=== PATIENT | female | born 1990 | race Caucasian/White ===

== ENCOUNTER → 2018-07-22 15:10 | Outpatient (CLI) | payer MEDICAID, SELFPAY ==
[2018-07-22 18:37] LABS: Chlamydia Trachomatis by PCR Negative (Negative); Neisserai gonorrhoeae by PCR Negative (Negative); Probe Check PASS; Sample Adequacy Control PASS; Specimen Processing Control PASS
[2018-07-28 10:48] LABS: HPV Reflexed? NOT INDICATED
== END ==
PROVIDERS: Visit Provider Obstetrics & Gynecology
DX: Z11.3 Encounter for screening for infections with a predominantly sexual mode of transmission (principal); Z12.4 Encounter for screening for malignant neoplasm of cervix
CPT/HCPCS: 87491; 87591; 88175; G0145

== ENCOUNTER → 2018-08-05 14:31 | Outpatient (CLI) | payer MEDICAID, SELFPAY ==
[2018-08-05 17:58] LABS: Thyroid Stim Hormone (TSH) 0.57 uIU/mL (0.358-3.74)
[2018-08-05 17:59] LABS: Absolute Lymphocyte Count 2.34 X10^3/ul (0.83-4.51); Absolute Neutrophil Count 10.4 X10^3/uL (2.0-7.7); Basophil# 0.02 X10^3/uL; Basophil% 0.1 % (0-1); Eosinophil# 0.13 X10^3/uL; Eosinophils% 0.9 % (0-5); Hematocrit 34.8 % (37-47); Lymphocyte # 2.34 X10^3/ul (4.0); Lymphocyte % 17.1 % (19-41); Mean Corp Hgb Conc 34.5 g/gl (32-36); Mean Corpuscular Hgb 31.5 pg (27.0-32.0); Mean Corpuscular Volume 91.3 fL (81-99); Mean Platelet Vol. 8.9 fl (6.2-12.0); Monocyte% 5.8 % (0-10); Neutrophil # 10.38 X10^3/uL (2.7-7.7); Neutrophil % 75.8 % (47-70); Platelet Count 390 K/mm3 (150-450); RBC Distribution Width CV 11.9 % (11.6-14.6); RBC Distribution Width SD 39.4 fl (35.1-43.9); Red Blood Count 3.81 M/mm3 (4.2-5.4); White Blood Count 13.7 K/mm3 (4.4-11.0)
[2018-08-05 18:06] LABS: POSITIVE COUNT NO; POSITIVE DIFFERENTIAL NO; POSITIVE MORPHOLOGY NO
[2018-08-05 18:09] LABS: COTININE Drug Screen Positive (<200 ng/mL)
[2018-08-05 18:11] LABS: Amphetamine Urine VISTA NEGATIVE (<1000 ng/mL); Barbiturate Urine VISTA NEGATIVE (< 200 ng/mL); Benzodiazepine Urine VISTA NEGATIVE (< 200 ng/mL); Cocaine Urine VISTA NEGATIVE (< 300 ng/mL); Ecstacy Urine VISTA NEGATIVE (< 500 ng/mL); Methadone Urine VISTA NEGATIVE (< 300 ng/mL); PCP Urine VISTA NEGATIVE (< 25 ng/mL); THC Urine VISTA NEGATIVE (< 50 ng/mL); Vista UDS pH Range 6
[2018-08-05 18:17] LABS: Color, Urine Yellow (Yellow); Glucose, Dipstick Normal (Normal); Ketone-Dipstick Negative (Negative); Leukocyte Esterase-Dipstick 100 /ul (Negative); Nitrite-Dipstick Negative (Negative); Occult Blood-Urine Negative /ul (Negative); Protein-Dipstick Negative (Negative); Urine Bilirubin Dipstick Negative (Negative); Urine Clarity Clear (Clear); Urine Urobilinogen 4 mg/dl (Normal)
[2018-08-05 18:38] LABS: HIV - WCH Non-Reactive (Nonreactive)
[2018-08-07 11:32] LABS: HEPATITIS B SURFACE AG Negative (Negative); Hep C Antibodies 0.1 s/co ratio (0.0-0.9)
[2018-08-09 01:30] LABS: Prenatal RPR NONREACTIVE (NONREACTIVE)
== END ==
PROVIDERS: Visit Provider Obstetrics & Gynecology
DX: Z34.81 Encounter for supervision of other normal pregnancy, first trimester (principal)
CPT/HCPCS: 36415; 80307; 81002; 84443; 85025; 86703; 86762; 86803; 87340

== ENCOUNTER → 2018-11-15 | Outpatient (CLI) | payer MEDICAID, SELFPAY ==
[2014-03-09 15:23] VITALS: BMI 22.6
[2018-11-15 17:12] LABS: Absolute Lymphocyte Count 3.32 X10^3/ul (0.83-4.51); Absolute Neutrophil Count 15.5 X10^3/uL (2.0-7.7); Basophil# 0.02 X10^3/uL; Basophil% 0.1 % (0-1); Hematocrit 31.3 % (37-47); Hemoglobin 10.6 g/dl (12.0-15.0); Lymphocyte # 3.32 X10^3/ul (4.0); Lymphocyte % 16.2 % (19-41); Mean Corp Hgb Conc 33.9 g/gl (32-36); Mean Corpuscular Volume 94.6 fL (81-99); Mean Platelet Vol. 9.4 fl (6.2-12.0); Monocyte# 1.31 X10^3/uL; Monocyte% 6.4 % (0-10); Neutrophil # 15.53 X10^3/uL (2.7-7.7); Neutrophil % 75.5 % (47-70); POSITIVE COUNT NO; POSITIVE DIFFERENTIAL NO; POSITIVE MORPHOLOGY NO; Platelet Count 292 K/mm3 (150-450); RBC Distribution Width CV 12.3 % (11.6-14.6); RBC Distribution Width SD 40.6 fl (35.1-43.9); Red Blood Count 3.31 M/mm3 (4.2-5.4); White Blood Count 20.6 K/mm3 (4.4-11.0)
[2018-11-15 17:14] LABS: Glucose Challenge Gest 1H 50g 101 mg/dL (70-140)
== END | disposition home or self-care (01) ==
PROVIDERS: Visit Provider Obstetrics & Gynecology
DX: Z34.83 Encounter for supervision of other normal pregnancy, third trimester (principal)
CPT/HCPCS: 36415; 82950; 85025

== ENCOUNTER 2019-01-16 12:00 | Outpatient (CLI) | payer MEDICAID, SELFPAY ==
[2014-03-09 15:23] VITALS: BMI 22.6
[2019-01-16 12:15] VITALS: BMI 24.3
[2019-01-16 13:54] LABS: Bacteria 0 SEEN /hpf (None Seen); Mucous, Urine 0 SEEN /hpf (<or=2+); Red Blood Cells-Urine 0 SEEN /hpf (0-5); Squamous Epithelial Cells - UA 0 SEEN /hpf (5-10)
[2019-01-16 13:56] LABS: Color, Urine Yellow (Yellow); Glucose, Dipstick Normal (Normal); Ketone-Dipstick Negative (Negative); Leukocyte Esterase-Dipstick 500 /ul (Negative); Nitrite-Dipstick Negative (Negative); Occult Blood-Urine Negative /ul (Negative); Protein-Dipstick Negative (Negative); Urine Bilirubin Dipstick Negative (Negative); Urine Clarity Clear (Clear); Urine Urobilinogen Normal (Normal)
[2019-01-16 14:06] LABS: White Blood Cells 0-5 SEEN /hpf (0-5)
--- NOTE | 2019-01-16 16:40 | OB.TRI.NOTE ---
History of Present Illness Date of Service: 01/16/19 Was patient seen by the physician?: No Reason For Visit: LABOR AND DELIVERY Date of Service: 01/16/19 Final CARLYN: 02/07/19 Final CARLYN Source: US <20 weeks Gestational age: 36 Weeks and 6 Days History of Present Illness: 28 yo female at 36 6/7 wk EGA presents with CC of discomfort , cramping and pelvic pressure Hoping to be induced or have baby soon. Hx of two prior 38 wk deliveries. no UTI sx Allergies latex Allergy (Unknown, Verified 01/16/19 12:17) Rash if internal if latex used externally, no reaction noted Laboratory Studies: Laboratory Tests 01/16/19 Range/Units 13:40 Urine Color Yellow (Yellow) Urine Clarity Clear (Clear) Urine pH 8.0 (5.0 - 8.0) Ur Specific [place] 1.010 (1.002-1.030) Urine Protein Negative (Negative) mg/dl Urine Glucose (UA) Normal (Normal) mg/dl Urine Ketones Negative (Negative) mg/dl Urine Occult Blood Negative (Negative) /ul Urine Nitrite Negative (Negative) Urine Bilirubin Negative (Negative) mg/dL Urine Urobilinogen Normal (Normal) mg/dl Ur Leukocyte Esterase 500 H (Negative) /ul Urine RBC 0 SEEN (0-5) /hpf Urine WBC 0-5 SEEN (0-5) /hpf Ur Squamous Epith Cells 0 SEEN (5-10) /hpf Urine Bacteria 0 SEEN (None Seen) /hpf Urine Mucus 0 SEEN (<or=2+) /hpf NST - FHR Rate Baby A Baseline: 120-130s avg variability. Accels to 160s Variability:: Moderate Accelerations:: None Decelerations:: None NST Reactive:: Yes, Appropriate for gestational age FHR Category:: Category I Uterine Activity:: irritability. no regular UCs noted. Impression/Plan 36 6/7 wk EGA . NST reactive, no regular UCs. UA: LE noted, nit neg and no bacteria noted. False labor, musculoskeletal discomforts of late Home RTO as planned for next PNV Return to [facility] if inc s/sx of labor.
== END 2019-01-16 14:20 | disposition home or self-care (01) ==
LOC: WPOUT 12:13 → WP 12:14
PROVIDERS: Family Provider Obstetrics & Gynecology; PCP Obstetrics & Gynecology; Referring Provider Obstetrics & Gynecology; Visit Provider Obstetrics & Gynecology
DX: O47.03 False labor before 37 completed weeks of gestation, third trimester (principal); Z3A.36 36 weeks gestation of pregnancy
CPT/HCPCS: 59025; 59050; 81001; 99218; G0378

== ENCOUNTER → 2019-01-17 16:57 | Outpatient (CLI) | payer MEDICAID, SELFPAY ==
[2019-01-16 12:15] VITALS: BMI 24.3
== END ==
PROVIDERS: Visit Provider Obstetrics & Gynecology
DX: Z36.85 Encounter for antenatal screening for Streptococcus B (principal)
CPT/HCPCS: 87081

== ENCOUNTER 2019-01-31 07:05 | Inpatient (IN) | payer MEDICAID, SELFPAY ==
[2019-01-31 07:31] VITALS: BMI 24.8
[2019-01-31] MEDS: Lactated Ringers 1,000 ML 50 ML IV (07:33)
[2019-01-31 08:01] LABS: Absolute Lymphocyte Count 3.44 X10^3/uL (0.83-4.51); Absolute Neutrophil Count 12.4 X10^3/uL (2.0-7.7); Basophil# 0.05 X10^3/uL; Basophil% 0.3 % (0-1); Eosinophil# 0.23 X10^3/uL; Eosinophils% 1.3 % (0-5); Hematocrit 30.9 % (37-47); Hemoglobin 10.2 g/dL (12.0-15.0); Lymphocyte # 3.44 X10^3/ul (4.0); Lymphocyte % 19.6 % (19-41); Mean Corpuscular Hgb 30.8 pg (27.0-32.0); Mean Corpuscular Volume 93.4 fL (81-99); Mean Platelet Vol. 9.8 fl (6.2-12.0); Monocyte# 1.18 X10^3/uL; Monocyte% 6.7 % (0-10); NRBC Flagged by Analyzer 0 % (0-5); Neutrophil # 12.39 X10^3/uL (2.7-7.7); Neutrophil % 70.7 % (47-70); Platelet Count 306 K/mm3 (150-450); RBC Distribution Width CV 12.6 % (11.6-14.6); RBC Distribution Width SD 43.5 fl (35.1-43.9); Red Blood Count 3.31 M/mm3 (4.2-5.4); White Blood Count 17.5 K/mm3 (4.4-11.0)
[2019-01-31] MEDS: Oxytocin 30 units/NS 500 ml 30 UNITS/500 ML IV.SOLN IV ×2 (08:02→16:16)
--- NOTE | 2019-01-31 08:09 | PCM.HPOB.BLA ---
History and Physical Date of Admission: 01/31/19 OB HISTORY AND PHYSICAL EXAMINATION History of this : 28 yo female Ab0 with EDC 02/07/2019 by 13 weeks 3 days Ultrasound, presents to Labor and Delivery for elective induction of labor at 39 wk EGA. 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 6# 8 oz (head got stuck?), vacuum extraction 5.) Smoker Pertinent Past Medical History: As above. Allergies: Latex Medications: During - 27-0.8 mg tablet; ferrous sulfate 325 mg (65 mg iron) tablet ; loratadine 10 mg capsule Review of Systems: Non-contributory PHYSICAL EXAMINATION General Appearance: edentulous 28 yo female in no acute distress Vital Signs: AF, VSS Lungs: reg respiratory rate and rhythm. Breasts: deferred Abdomen: gravid Pelvis: adequate Cervix: 3/75/-2 AROM clear, mod amount of fluid. Presentation: cephalic Size: AGA Movement: present Heart: present 130-140s avg variability. Accels noted no UCs on monitor at this time. Impression /Plan: Intrauterine . female at 39 wk EGA for elective induction of labor AROM and Pitocin planned. Watch progress, descent and tolerance of labor. AROM clear fluid with cervical mucous noted. Watch for meconium. (nursing called this meconium -- they have notified peds) Advised pt if mec present, then peds and RT also at delivery. Continue Pitocin induction. H and P generated at time of exam and admission Gustavo Gary MD 01/31/19 [id number]
[2019-01-31] MEDS: Lactated Ringers 500 ML 999 ML IV ×2 (09:22→11:37)
[2019-01-31] MEDS: fentaNYL-bupivacaine (epidural) 100 ML BAG EPIDURAL ×2 (10:37→15:15)
--- NOTE | 2019-01-31 12:33 | PCM.PN.BLA ---
Progress Note LABOR PROGRESS NOTE comfortable w/ epidural AVSS Pitocin at 2 mIU/min EFM 120-130s avg variability. Accels. Category I tracing UCs ? mVUs on IUPC. Irregular and appear inadequate mVUs CX: 4-5/80/-2 per last RN check. Light mec reported A/P; 39 wk EGA elective induction of labor. continue Pitocin per protocol, position changes to facilitate rotation, descent. Pitocin prn, consider flush or replace IUPC
--- NOTE | 2019-01-31 14:00 | NURSING ---
Latex free Hugo catheter.
[2019-01-31] MEDS: Lactated Ringers 1,000 ML 200 ML IV (14:39)
--- NOTE | 2019-01-31 16:47 | DCINST_ITS ---
Discharge Diet: No Restrictions Discharge Activity: May Shower, May Take a Tub Bath May resume sexual activity in: 4-6 weeks Additional Activity Instructions:: Nothing in the vagina for 4-6 weeks. You may return to work/school in 6 weeks. Additional Instructions: If you experience any of the following, contact your healthcare provider. * Bleeding that soaks a pad every hour for 2 hours * Fever 100.4 or higher * Unrelieved abdominal pain * Problems urinating (including inability to urinate or burning while urinating). * Visual changes * Severe headache * Flu-like symptoms * Pain or redness in one of both of your breasts * Pain, warmth, tenderness or swelling in your legs, especially the calf area * Frequent nausea and vomiting * Symptoms of depression or anxiety If you experience any of the following, call 911 or go to the nearest Emergency Room. * Chest pain * Problems breathing * Seizure activity * Partial or complete paralysis of a body part, slurred speech, weakness or drooping of the face, or a sudden inability to walk or hold your balance Allergies/Adverse Reactions: Allergies latex Allergy (Unknown, Verified 01/16/19 12:17) Rash if internal if latex used externally, no reaction noted Medications to take at Discharge Vits [Prenatabs FA ] 1 tablet PO DAILY 03/09/14 Loratadine/Pseudoephedrine [Claritin-D 24 Hour Tablet] 1 ea PO DAILY 01/16/19 Ferrous Sulfate 325 mg PO DAILY 01/31/19 Hydroxyzine Pamoate [Vistaril] 50 mg PO PRN PRN 01/31/19 Please Follow Up With: Inez Gary MD - [phone] When: Call to make an appointment with your doctor in 6 weeks. Primary Care Physician: Nadya Chaves NP-C [Primary Care Provider] - Test Results: Test results from this visit will be discussed in further detail at your follow- up appointment, if applicable. Proposed Discharge Date: 02/02/19
--- NOTE | 2019-01-31 17:14 | OP.PCM_ITS ---
Vaginal Delivery Maternal Presentation: Elective Induction Method of Induction: Pitocin Medical Reason for Induction: Maternal Medical Condition: list: - 39 weeks completed gestation, iron deficiency anemia, maternal smoking Amniotic Membrane Rupture Type: Artificial Amniotic Fluid Description: Lightly stained meconium Final CARLYN: 02/07/19 Final CARLYN Source: US <20 weeks Gestational age: 39 Weeks and 0 Days Date of Procedure: 01/31/19 Pre-Operative Diagnosis: IUP @ 39 completed weeks gestation Post-Operative Diagnosis: Spontaneous Vaginal Delivery Type of Anesthesia: Epidural Description of Procedure: Upon my arrival patient was c/c/+1 with caput forming; vertex felt to be in ROP position; patient placed in exaggterated LL Scott position, pushed effectively, and delivered a male , OA to JACQUELIN; shoulders delivered smoothly with McRobert's position; dried, stimulated, placed on mother's abdomen with pediatrics in attendance, cord clamped x 2 and cut, after which was taken to the nearby warmer; APGARs were 8/9 and he was soon returned to mother's arms; placenta delivered spontaneously, Bernard mechanism, intact, 3- vessel cord, central insertion; perineum intact; fundus firm, midline, u/3 after delivery. EBL 300 Presentation: Vertex Placental Delivery Description: Spontaneous Placenta Disposition: [facility] Cord Vessel Description: 3 Vessels Infant A gender: Male (1 minute): 8 (5 minute): 9 Episiotomy Description: None Laceration: None Medications given after delivery: IV Pitocin
[2019-01-31 20:15] VITALS: BP 110/61; PULSE 77; RESP 16; TEMP 37.5; O2SAT 98
[2019-02-01 00:30] VITALS: BP 98/59; PULSE 63; RESP 16; TEMP 36.4
[2019-02-01] MEDS: Ibuprofen 600 MG Tablet PO ×3 (00:34→13:03)
[2019-02-01 04:30] VITALS: BP 96/49; PULSE 66; RESP 16; TEMP 36.2
[2019-02-01 06:35] LABS: Hematocrit 27.1 % (37-47); Hemoglobin 8.9 g/dL (12.0-15.0); Mean Corp Hgb Conc 32.8 g/dL (32-36); Mean Corpuscular Hgb 30.7 pg (27.0-32.0); Mean Corpuscular Volume 93.4 fL (81-99); Mean Platelet Vol. 9.6 fl (6.2-12.0); Platelet Count 247 K/mm3 (150-450); RBC Distribution Width CV 12.4 % (11.6-14.6); RBC Distribution Width SD 42.7 fl (35.1-43.9); White Blood Count 24.6 K/mm3 (4.4-11.0)
--- NOTE | 2019-02-01 07:04 | PN.OBGYN_ITS ---
Subjective: Feeling well, :a little crampy, well controlled with Ibuprofen, Tylenol; passing flatus,tolerating diet well bottle feeding; doing well Objective: Fundus firm, midline, u/3, lochia small; breasts soft - Physical Exam General: Alert, Oriented x3, Cooperative, No apparent distress HEENT: PERRLA, EOMI Oral: Moist Mucosa Neck: Supple Lungs: Normal air movement Cardiovascular: Regular rate, Regular Rhythm Abdomen: Soft, Non Tender Extremities: Capillary Refill Less than 3 Seconds, No Calf Tenderness Skin: No rashes Neurological: Cranial nerves II-XII grossly intact, Deep Tendon Reflexes 2+/4 and Symmetrical Psych/Mental Status: Normal Affect, Appropriate, Alert and oriented to time, place, person, mood and affect Vital Signs Temp Pulse Resp BP Pulse Ox 97.1 F L 66 16 96/49 L 98 02/01/19 04:30 02/01/19 04:30 02/01/19 04:30 02/01/19 04:30 01/31/19 20:15 Oxygen Delivery Method Room Air Weight: 144 lb 9.972 oz Body Mass Index (BMI) 24.8 Intake and Output for Last 24 Hours 01/30/19 01/31/19 02/01/19 23:59 23:59 23:59 Intake Total 2142.84 / 2142.84 Output Total 1500 / 1500 Balance 642.84 / 642.84 Laboratory Tests Past 24 Hrs 01/31/19 01/31/19 02/01/19 07:53 07:53 06:20 WBC 17.5 H 24.6 H RBC 3.31 L 2.90 L Hgb 10.2 L 8.9 L Hct 30.9 L 27.1 L MCV 93.4 93.4 MCH 30.8 30.7 MCHC 33.0 32.8 RDW Std Deviation 43.5 42.7 RDW Coeff of Paul 12.6 12.4 Plt Count 306 247 MPV 9.8 9.6 Immature Gran % (Auto) 1.400 H Neut % (Auto) 70.7 H Lymph % (Auto) 19.6 [place] % (Auto) 6.7 Eos % (Auto) 1.3 Baso % (Auto) 0.3 Absolute Neuts (auto) 12.4 H Absolute Lymphs (auto) 3.44 Nucleated RBC % 0 Blood Type A POSITIVE Antibody Screen NEGATIVE Medical Necessity - Tobacco Use Smoking Status: Heavy Smoker (>10/day) Assessment/Plan Assessment: day #1 Normal involution and course Bottle feeding Plan: Discussed comfort measures to avoid engorgement Continue routine care
[2019-02-01 08:15] VITALS: BP 105/55; PULSE 81; RESP 16; TEMP 36.7; O2SAT 100
[2019-02-01] MEDS: Acetaminophen 500 MG Tablet 1000 MG PO (09:57)
[2019-02-01 12:00] VITALS: BP 117/68; PULSE 79; RESP 17; TEMP 36.7; O2SAT 98
[2019-02-01 16:00] VITALS: BP 115/60; RESP 17; O2SAT 99
--- NOTE | 2019-02-01 17:20 | CASEMGMT ---
Social Work Referral Date: 02/01/19 Date of Assessment: 02/01/19 Reason for Consult: History of depression for Mother of baby (MOB). Informant: Dr. Gary, nursing staff. Personal Status Mentation: A&Ox3 Present during assessment: MOB and . Hx : 3 Hx Para: 2 Infant Gender: Male Infant Name: Blaze Garnica (1min): 8 (5min): 9 Care: Adequate Alleged father: Paco Garnica Alleged father involved: Yes Length of Relationship with alleged father of baby: 7 Years FOB Mental Health/AOD/Domestic Violence Hx: MOB reporting that father of baby (FOB) has some depression. Denies any mental health treatment or SI for FOB and that it has been awhile since KARMEN has had a spell. MOB stating that FOB has used THC in the past but nothing current. FOB does smoke tobacco. No other substance usage per MOB. FOB Employment: Full-time Number of Children in the home: This will be third child for MOB and second for FOB. Custody Comments: MOB and FOB have had this infant and Cynthia age 4 together. Ingrid is age 8 and does not share paternity with this or Cynthia. MOB stating to have custody of all children and that Ingrid's father is not involved that MOB is not sure who the father is. Living Arrangements: MOB, FOB, Cynthia, Ingrid and now this infant live together in a private home. Education: Some collage. Employment: Exterminator Helper Family Dynamics/Relationships: MOB reporting positive dynamics and relationships. MOB denies any history of abuse or neglect. Supports: MOB stating to have support from FOB and sister in law. KARMEN currently has other children. Transportation: No concerns identified. Substance Abuse Hx and Current Pattern of Use MOB stating to have used THC some a couple years ago. MOB denies any active THC usage. MOB denies to using THC during . No tox obtained for MOB on admission. MOB stating to smoke tobacco daily and to be aware of smoking away from children and and risk of SIDS for infant. MOB stating that FOB and MOB smokes outside and not around the children. MOB reporting to have an occasional drink of alcohol, but identifies no abuse. MOB denies any other substance usage such as Methamphetamine, Cocaine, Prescriptions Drugs, or Heroin. Mental Health Hx and Current Status MOB stating to have a history of depression with Cynthia. MOB stating to have been down. MOB denies any SI or HI. MOB denies any medication or counseling to manage mental health. MOB denies any mental health diagnosis at this time. MOB educated on further signs and symptoms on depression. MOB agreeing to speak with MOB's doctor if MOB begins showing signs and symptoms of depression. MOB stating to have been able to get through on own with past . Items/Skills List for Infants Care Supplies: MOB stating to have all needed supplies crib, car seat, infant clothing, diapers etc. Bonding With Infant: MOB stating to have a connection with . MOB planning to bottle feed and that that this is going well. Observed Maternal/Paternal Child interaction: MOB holding infant during interaction. MOB gazing towards and finger tipping often during assessment. Emotional Assessment: MOB presenting with a positive affect. Control: MOB planning to have a tubal completed. Resources: MOB reporting to be active with WIC and to have insurance through [employer]. Patient stating to have a history of [facility] but declining referral at this time. Patient denies any children services involvement in the past. Patient provided with resource on safe sleeping, [employer] [facility] [employer], depression, and community resources. Intervention: None indicated at this time Plan: Infant to discharge to home with MOB and FOB and other children. Bozena GILES, LEENA
[2019-02-01 19:46] VITALS: BP 124/69; PULSE 68; RESP 18; TEMP 36.2
--- NOTE | 2019-02-01 20:21 | NURSING ---
1999-[facility]
== END 2019-02-01 20:00 | disposition home or self-care (01) | DRG 560 ==
PROVIDERS: Admitting Provider Obstetrics & Gynecology; Family Provider Nurse Practitioner Family; PCP Nurse Practitioner Family; Referring Provider Obstetrics & Gynecology; Visit Provider Obstetrics & Gynecology
DX: O77.0 Labor and delivery complicated by meconium in amniotic fluid (principal); O99.334 Smoking (tobacco) complicating childbirth; O99.02 Anemia complicating childbirth; Z3A.39 39 weeks gestation of pregnancy; Z37.0 Single live birth
CPT/HCPCS: 59025; 59050; 85025; 85027; 86850; 86900; 86901; 99218; J7120; G0378

== ENCOUNTER 2019-04-16 06:09 | Day surgery (SDC) | payer MEDICAID, SELFPAY ==
--- NOTE | 2019-04-15 08:59 | HP.PCM_ITS ---
History and Physical Date of Admission: 04/15/19 HISTORY OF PRESENT ILLNESS: On 03/13/2019, Maricel Garnica, a 28 year old female 3 0 0 0 3, presented for: -- Preop appointment. Maricel is S/P 01-31-19, plans to have bilateral tubal ligation / Surgical sterilization for control. After discussion of methods for surgical sterilization, plans to have bilateral salpingectomy for potential reduction of risk of ovarian cancer. EB ALLERGIES: Latex, Rash/hives MEDICATIONS HISTORY: Current medications prescribed by our practice are: 1. azithromycin 250 mg tablet, 2 tab po first day, then one po daily until gone 2. Dramamine 50 mg tablet, 1 po q 4 to 6 hr taken 1/2 to 1 hr prior to travel 3. ferrous sulfate 325 mg (65 mg iron) tablet, 1 po daily 4. Formula 28 mg iron-800 mcg tablet, 1 daily 5. terconazole 0.8 % vaginal cream, 1 applicator daily for 7 d 6. Vistaril 50 mg capsule, 1 to two po at hs prn sleep REVIEW OF SYSTEMS: GENERAL - Denies fever, or chills SKIN - Denies skin changes EYES - Denies visual changes EARS - Denies difficulty hearing NOSE - Denies nasal congestion or bleeding MOUTH - Denies sore throat or difficulty swallowing NECK - Denies pain or swelling RESPIRATORY - Denies shortness of breath or wheezing CARDIOVASCULAR - Denies palpitations or chest pain GASTROINTESTINAL - Denies nausea, vomiting, diarrhea, constipation GENITOURINARY - Denies dysuria, frequency of urination, incontinence of urine MUSCULOSKELETAL - Denies joint or muscle pain NEUROLOGICAL - Denies localized numbness or weakness PSYCHIATRIC - Denies depression or anxiety ENDOCRINE - Denies heat or cold intolerance, weight loss or gain HEMATO-IMMUNOLOGIC - Denies excessive bleeding with cuts SURGICAL HISTORY: 1. none MENSTRUAL HISTORY: LMP Known?- Approximate-Month KnownAmount/Duration - 3-5 DAYS, Regularity - Regular, Frequency - monthly days, LMP - 03/12/19, Age Onset Menarche - 12 PAST PREGNANCIES: Total Pregnancies - 3; Full Term Pregnancies - 3; Premature - 0; Abortions, Induced - 0; Abortions, Spontaneous - 0; Ectopics - 0; Multiple Births - 0; Living Children - 3 SOCIAL HISTORY: Alcohol Use - drinks occasionally not while Smoking - Advised to quit and Smoker x 10 y. 1PPD+ if having bad day. Diet - caffeine > 2 drinks per day, fast food diet, needs improvement and One Monster drink qday. 1-2 Mt Dew. Water 16 oz x2 qday. Lifestyle - moderate stress lifestyle and Exercise - minimal Seat Belt Use - always Employer - homemaker Illicit Drug Use - Tried marijuana but didn't like it. None since. Sexual Activity - Residence - They live w his grandmother. In [facility] (made a room for the girls). Place of - [place] Hours Worked - 20 or less Spouse-Sig Other Name - Paco Spouse-Sig Other Occupation - Katie Spouse-Sig Other Phone No - [phone] Children Name(s) - Ingrid 2013 ()Janet 2010, Blaze ('19) Control - Trying to decide PHYSICAL EXAMINATION BP- 100/80 Sitting, Right arm, regular cuff Weight- 129.20 lbs Height- 64.00 inch BMI:22.22 CONSTITUTIONAL - NAD, well nourished, and well developed HEENT - Normocephalic, PERRLA, EOMI and edentulous NECK - no nuchal rigidity EXTREMITIES - No edema or calf tenderness NEUROLOGICAL - Cranial nerves II-XII grossly intact PSYCHIATRIC - A and O to time, place, person, mood and affect ASSESSMENT: 1. Sterilization Request PLAN BY DIAGNOSIS: 1. Surgical sterilization Plans bilateral salpingectomy. R,B,A discussed. Reviewed anticipated surgery, preop, operative and postop recovery including activity restrictions. All questions answered to her satisfaction. Consents signed and on chart. Plan for surgical sterilization as scheduled. RTO in 2 wk for postop incision check. Medication(s) Stopped/Reason: Formula 28 mg iron-800 mcg tablet - No Longer Needed, terconazole 0.8 % vaginal cream - No Longer Needed, azithromycin 250 mg tablet - No Longer Needed, Dramamine 50 mg tablet - No Longer Needed and Vistaril 50 mg capsule - No Longer Needed
[2019-04-16 06:35] LABS: Internal QC Validated? YES +Cl - CLEAR BKGD; Pregnancy, Urine Negative Negative
[2019-04-16 06:40] VITALS: BP 113/80; PULSE 84; RESP 18; TEMP 36.6; O2SAT 99; BMI 21.4
[2019-04-16] MEDS: Lactated Ringers 1,000 ML 100 ML IV (07:01)
--- NOTE | 2019-04-16 07:20 | DCINST_ITS ---
Discharge Diet: No Restrictions Return to work on:: 04/18/19 May resume sexual activity in: 1 week - when comfortable Call your doctor if you observe: Fever of 101 or Higher, Uncontrolled pain Cleanse incision/area with: Soap & Water, Keep Dressing Clean & Dry Additional Instructions: Use Tylenol 500 mg tablets, 1 or 2 every 8 hrs as needed for milder pain. You may also add either two Aleve or three Ibuprofen every 8 hrs as needed for pain. Take OxyIR for severe pain only. Allergies/Adverse Reactions: Allergies latex Allergy (Unknown, Verified 04/09/19 10:50) Rash if internal if latex used externally, no reaction noted Medications to take at Discharge Naproxen [Naprosyn] 250 - 500 mg PO TID PRN PRN #30 tab 04/16/19 Oxycodone [Oxyir] 5 mg PO Q6H PRN PRN 2 Days #5 tablet 04/16/19 The following prescriptions were given: Naproxen [Naprosyn] 250 - 500 mg PO TID PRN PRN #30 tab PRN Reason: Mild-Mod Pain (1-09/20) [facility] Oxycodone [Oxyir] 5 mg PO Q6H PRN PRN 2 Days #5 tablet PRN Reason: Mod-Severe Pain (4-02/20) Transmission Status: Sent to [facility] Primary Care Physician: Nadya Chaves NP-C [Primary Care Provider] - Test Results: Test results from this visit will be discussed in further detail at your follow- up appointment, if applicable. Please Follow Up With: Inez Gary MD - [phone] When: Return to office for appt in 1-2 wk for postoperative incision check. Proposed Discharge Date: 04/16/19
--- NOTE | 2019-04-16 07:30 | FALS_PTH ---
PATIENT: JOHNNY HAYS LOC: [facility] [place] U#:[id number] AGE/SX: 28/F ROOM: RE04/16/[address]: Dr. Inez Gary MD : [id number] BED: DIS: 04/16/2019 SPEC #: [id number] RECD: 04/16/19 08:20 STATUS: YOLANDA SRIDHAR #: [id number] BENJAMIN: 04/16/19 07:[address]: Inez Gary DEPT: SURGICAL PATHOLOGY RECD BY: Lenny Peralta ENTERED: 04/16/19 13:33 SP TYPE: FALL TUBES OTHR DR: Nadya Chaves, BENEFITS ANALYST-C Tissues: Fallopian tube Procedures: Surgery Specimen Level II Surgery Specimen Level IV HEADER OPERATION: Laparoscopic bilateral salpingectomy PRE-OP DIAGNOSIS: Sterilization request TISSUE SUBMITTED: Bilateral fallopian tubes MICROSCOPIC DIAGNOSIS Bilateral fallopian tubes, salpingectomy: One fallopian tube including fimbrial end with focal area of luminal and serosal decidual change, hyalinization and old hemorrhage. See comment. Second fallopian tube including fimbrial end, no pathologic diagnosis. DOUG:bienvenido 04/18/19 COMMENT These findings may represents old implantation site. Correlation with clinical findings and appropriate follow up are necessary. This case is discussed with Dr. Gary on 04/18/19. Case has been reviewed in consultation with Dr. David who concurs with the above diagnosis. IDC:AM MICROSCOPIC DESCRIPTION Slides are reviewed. GROSS DESCRIPTION Received is one container labeled with the patient's name and designated bilateral fallopian tubes. The specimen consists of bilateral fallopian tubes including fimbrial ends measuring 5.5 cm in length and 0.5 cm in diameter and 4.5 cm in length and 0.5 cm in diameter. Sections do not reveal any mass lesion. The fallopian tubes are not identified as right or left. Sections reveal unremarkable cut surfaces. Welder Fitter Helper sections are submitted in two cassettes with each cassette containing one fallopian tube. / DOUG:bienvenido 04/16/19 The rest of the specimen is submitted in two more cassettes, 3 & 4. / SJ:bienvenido 04/17/19 TC:5 CPT: 86284, 23249
[2019-04-16 08:07] VITALS: BP 113/80; BP 118/86; PULSE 77; RESP 16; TEMP 36.2; O2SAT 100
[2019-04-16 08:15] VITALS: BP 113/80; BP 118/86; PULSE 83; RESP 16; O2SAT 99
[2019-04-16 08:30] VITALS: BP 113/80; BP 114/83; PULSE 71; RESP 16; O2SAT 100
[2019-04-16 08:34] VITALS: BP 113/80; BP 117/85; PULSE 74; RESP 16; TEMP 36.1; O2SAT 100
[2019-04-16 09:22] VITALS: BP 113/80; BP 124/90; PULSE 63; RESP 18; TEMP 36.8; O2SAT 100
--- NOTE | 2019-04-16 13:16 | PCM.OPRPT ---
Report of Operation Date of Procedure: 04/16/19 Pre-Operative Diagnosis: sterilization request Post-Operative Diagnosis: same Surgery/Procedure Performed:: Laparoscopic bilateral salpingectomy Description of Surgical Findings:: Normal appearing uterus, fallopian tubes, ovaries, appendix, liver edge and gallbladder. residential sales manager: Billie Goldman Type of Anesthesia:: General Anesthesiologist: Aaliyah Ambrocio CRNA Specimen's removed: bilateral fallopian tubes Drains: Latex free catheter Estimated Blood Loss (mL): 20 Fluids Replaced: LR Description of Procedure: Narrative account: After the risks, benefits, alternatives of procedure had been reviewed with the patient, informed consent was obtained. The patient was taken back to the Operative room with an IV running. she was positioned on the operating table in dorsal supine position, where she was given general anesthesia. Once asleep she was repositioned to the dorsal lithotomy position and prepped and draped in the usual sterile fashion. A red Harvey catheter was used to drain the bladder prior to initiating the case. A sponge stick placed into the vagina to allow manipulation of the uterus and cervix during the case. Attention was then turned to the anterior abdominal wall where 10 cc of 0.25 % Marcaine with epinephrine was instilled at the suprapubic and infraumbilical skin and at a point midway between in the midline. Skin incisions were then created in the midline at the suprapubic skin and at the infraumbilical skin and midway between the two. While maintaining upward traction of the anterior abdominal wall a Veress needle was inserted through the umbilical incision into the peritoneal cavity. There was free drop of saline, low opening pressure and free flow of CO2 noted. Once the intraabdominal pressure had reached 12 mm of mercury the Veress needle was removed and a bladeless 5 mm trocar was placed through infraumbilical skin incision into the peritoneal cavity. Correct placement was confirmed using the scope. Under direct visualization then with the patient in Trendelenburg position, a bladeless 5 mm trocar was inserted in through suprapubic skin incision into the peritoneal cavity and at a point midway between the infraumbilical and suprapubic trocars. The uterus as anteverted and both ovaries and fallopian tubes were WNL. The R fallopian tube was grasped and retracted medially and using a LigaSure device the fallopian tube was excised from the ovary and mesosalpinx. Excellent hemostasis was noted at the excision site. The R fallopian tube was brought through the suprapubic trocar and set aside for later pathology review. In a similar manner the L fallopian tube was grasped and retracted medially and the fallopian tube was excised and removed from the abdominal cavity through the suprapubic trochar. The Fallopian tubes were sent to pathology. Excellent hemostasis was noted by visualization of the pelvis, ovaries, and remaining mesosalpinx. Photos were taken of the uterus and Bilateral remaining ovaries and of the RUQ and liver edge. At this point the the procedure was terminated. The pneumoperitoneum was reduced and the instruments and trocars were removed from he the anterior abdominal wall skin. The skin incisions were closed with 4-0 Monocryl in a subcuticular fashion. Dermabond was applied to the skin. The sponge stick was removed from the vagina. The patient was returned to dorsal supine position. She was awakened from general anesthesia. She was transferred to the recovery room bed in stable condition after tolerating the procedure well. Sponge, lap, needle and instrument counts were correct x two. Medications given preop and intraoperatively included: 10 cc of 1/2 % Marcaine with epinephrine --used as a subcutaneous block and Toradol 30 mg IV x one. For a complete listing of medications given preop and intraop , please see the anesthesia record. - Complications none - Admit VTE Documentation VTE Present on Admission: No VTE Mechan Device Prophylaxis: SCD's VTE Pharm Prophylaxis ordered?: No
== END 2019-04-16 09:34 | disposition home or self-care (01) ==
LOC: SDC 06:10 → AC 06:11
PROVIDERS: Family Provider Nurse Practitioner Family; PCP Nurse Practitioner Family; Referring Provider Obstetrics & Gynecology; Visit Provider Obstetrics & Gynecology
PROC: (CPT 58661; principal; 2019-04-16 07:15)
DX: Z30.2 Encounter for sterilization (principal); F17.200 Nicotine dependence, unspecified, uncomplicated
CPT/HCPCS: 58661; 81025; 88302; 88305; J7120; J2405